=== PATIENT | female | born 1990 | race African-American/Black ===

== ENCOUNTER 2022-02-11 03:57 | Inpatient (IN) | payer BC ==
[2022-02-11] MEDS ORDERED: Oxytocin 10 UNITS/ML VIAL ONE (04:23)
[2022-02-11] MEDS ORDERED: Lidocaine 1% (PF) 30 ML VIAL ONE (04:24)
[2022-02-11] MEDS ORDERED: Misoprostol 200 MCG TAB ONE (04:29)
[2022-02-11 05:15] LABS: SARS-CoV-2 NAA Rapid Test Not Detected (NotDetected)
[2022-02-11] MEDS ORDERED: Misoprostol 200 MCG TAB PR PRN (05:25)
[2022-02-11] MEDS ORDERED: HYDROcodone/Acetaminophen 5/325 mg Tablet PO PRN ×4 (05:25→06:46)
[2022-02-11] MEDS ORDERED: hydrALAZINE 20 MG/ML VIAL SLOW IVP PRN ×2 (05:25→06:46)
[2022-02-11] MEDS ORDERED: Ondansetron PF 4 MG/2 ML Vial IVP PRN (05:25)
[2022-02-11] MEDS ORDERED: Ibuprofen 800 MG TAB PO PRN (05:25)
[2022-02-11] MEDS ORDERED: Promethazine HCl 25 MG/ML VIAL IM PRN (05:25)
[2022-02-11] MEDS ORDERED: Lidocaine 1% (PF) 30 ML VIAL SC PRN (05:25)
[2022-02-11 05:27] VITALS: BMI 26.6
[2022-02-11] MEDS ORDERED: NS w/ Oxytocin 30 units 500 ML IV SCH (05:30)
[2022-02-11] MEDS ORDERED: Boostrix 0.5 ML (Tdap) VIAL (>/=7 yrs of age) IM ONE (06:46)
[2022-02-11] MEDS ORDERED: Misoprostol 200 MCG TAB VAG PRN (06:46)
[2022-02-11] MEDS ORDERED: Lanolin Ointment 7 GM TUBE TOP PRN (06:46)
[2022-02-11] MEDS ORDERED: Milk Of Magnesia 30 ML UDCUP PO PRN (06:46)
[2022-02-11] MEDS ORDERED: Benzocaine-Menthol 82.5 ML CAN TOP PRN (06:46)
[2022-02-11] MEDS ORDERED: Bisacodyl 10 MG SUPP PR PRN (06:46)
[2022-02-11] MEDS: Prenatal Vitamin 1 TAB PO SCH (08:50)
[2022-02-11] MEDS: Docusate 100 MG CAP PO SCH ×2 (08:50→22:40)
[2022-02-11] MEDS: Ferrous Sulfate 325 MG TAB PO SCH ×2 (08:53→17:48)
[2022-02-11 09:52] LABS: Hemoglobin 11.7 g/dL (12.0-15.5); Mean Corpuscular HGB CONC 34.9 g/dL (32.0-36.0); Mean Corpuscular Volume 83.1 fl (81.6-98.3); Mean Platelet Volume 10.7 fl (7.4-10.4); Platelet Count 220 10x3/uL (150-450); RBC Distribution Width 14.3 % (11.5-14.5); Red Blood Cell (RBC) Count 4.03 10x6/uL (3.90-5.03); White Blood Cell (WBC) Count 11.5 10x3/uL (3.5-10.5)
[2022-02-11 10:23] LABS: HBSAg Index 0.12 S/CO (0-0.99); Hep B Surf Ag Non-Reactive S/CO (NonReactive)
[2022-02-11 10:25] LABS: Syphilis Antibody Nonreactive (Nonreactive); Syphilis Antibody Index 0.03 S/CO (<1.00 Non-Reactive)
[2022-02-11] MEDS: Ibuprofen 800 MG TAB PO SCH ×3 (12:59→22:40)
[2022-02-12] MEDS: Ibuprofen 800 MG TAB PO SCH (06:10)
[2022-02-12 08:00] VITALS: BP 101/50; TEMP 97.5
[2022-02-12] MEDS: Docusate 100 MG CAP PO SCH (08:53)
[2022-02-12] MEDS: Prenatal Vitamin 1 TAB PO SCH (08:53)
[2022-02-12] MEDS: Ferrous Sulfate 325 MG TAB PO SCH (08:55)
== END 2022-02-12 13:00 | disposition home or self-care (01) | DRG 807 ==
LOC: CSHLD/OP 03:57 → CSHLD 04:33 → CSHPP 07:41
PROVIDERS: ADMIT Obstetrics & Gynecology; ATTEND Obstetrics & Gynecology
PROC: 10E0XZZ Delivery of Products of Conception, External Approach (ICD-10-PCS; principal; 2022-02-11)
PROC: 0KQM0ZZ Repair Perineum Muscle, Open Approach (ICD-10-PCS; 2022-02-11)
DX: O99.52 Diseases of the respiratory system complicating childbirth (principal); Z37.0 Single live birth; O69.1XX0 Labor and delivery complicated by cord around neck, with compression, not applicable or unspecified; O99.344 Other mental disorders complicating childbirth; O77.0 Labor and delivery complicated by meconium in amniotic fluid; O70.1 Second degree perineal laceration during delivery; J45.909 Unspecified asthma, uncomplicated; F32.A Depression, unspecified; Z20.822 Contact with and (suspected) exposure to COVID-19; Z3A.39 39 weeks gestation of pregnancy; Z98.890 Other specified postprocedural states
CPT/HCPCS: 36415; 85027; 86780; 86850; 86900; 86901; 87340; 99285; J2001; J2590; U0002